=== PATIENT | female | born 1985 | race Caucasian/White ===

== ENCOUNTER 2017-09-22 14:14 | Emergency (ER) | payer SELFPAY ==
[2017-09-22 14:15] VITALS: BP 133/76; PULSE 80; RESP 20; TEMP 37; O2SAT 99; BMI 26.6
--- NOTE | 2017-09-22 14:42 | CT_ITS ---
CT head/brain wo con Ordering Physician: Jorge Luis Powell MD Patient Age: 32 years: Female HISTORY: loss of right eye peripheral vision Right eye redness inflamed since Sand[place]. Family history of brain tumor. Headache. TECHNIQUE: Routine CT head without contrast. Brain and bone windows performed on workstation and submitted to PACS....76 CPT COMPARISON :None FINDINGS No acute intracranial findings evident on this survey CT without contrast. No mass lesion. No hemorrhage. No extra-axial collection or mass. The ventricles and basal cisterns appear satisfactory. Posterior fossa is unremarkable.. Incidental observations: Nearly 2 cm retention cyst at posterior floor of left maxillary sinus. Prominent deviation nasal septum convexity to the right incidentally noted along with moderate engorgement nasal turbinates . Trace mucosal thickening anterior inferior right sphenoid sinus. Otherwise frontal ethmoid and sphenoid sinuses clear. Opacification of several mastoid air cells at left mastoid tip reflecting developing minimal left mastoid effusion. Otherwise majority of the left mastoid air cells superior to this on left unremarkable.. Right mastoid air cells well-developed & clear. Middle ear clear unremarkable. IACs satisfactory. Skull intact. Limited axial images the orbits reveal no prominent findings here. No retrobulbar pathology. Lacrimal gland upper normal prominence. The the suprasellar cistern region of optic chiasm unremarkable. The occipital lobes unremarkable. .....IMPRESSION....... 1. No acute incidental findings. Brain within normal limits.. Skull intact 2. No significant findings at the orbits on this CT head survey study.. Lacrimal glands upper normal bilateral 3. Minimal findings paranasal sinuses as in text . . Also incidental note of minimal mastoid effusion at left mastoid tip.
[2017-09-22 14:59] LABS: Urine Pregnancy, HCG Qual. Negative (Negative)
--- NOTE | 2017-09-22 15:44 | [facility].EDEYEP ---
ED Disposition Clinical Impression: Acute iritis, right eye Disposition: Home, Self-Care Condition on Discharge: Good Instructions: DI for Anterior Uveitis Additional Instructions: Please go to [facility] upon discharge from this department, to be evaluated by Dr. Alejandro Talbot. Time of Disposition: 15:47 - Critical Care Critical Care Time: No Attestation: On 09/22/17, the high probability of a clinically significant, sudden or life threatening deterioration of the following system(s) required my full and direct attention, intervention and personal management. The time I documented below is in addition to time spent performing reported procedures but includes the following listed in this critical care notation. Medical Decision Making - Medical Records Medical records reviewed: Yes: I reviewed the patient's medical records. Vital Signs: 09/22/17 14:15 09/22/17 16:11 Temperature 98.6 F 98.5 F Temperature Source Oral Oral Pulse Rate 68 Pulse Rate [Right Radial] 80 Respiratory Rate 20 18 Blood Pressure 129/87 Blood Pressure [Right Arm] 133/76 Blood Pressure Mean [Right Arm] 95 Blood Pressure Source Automatic Cuff Blood Pressure Source [Right Arm] Automatic Cuff Blood Pressure Position Sitting Blood Pressure Position [Right Arm] Sitting 02 Sat by Pulse Oximetry 99 Oxygen Delivery Method Room Air Room Air - Lab Data Lab results reviewed: Yes: I reviewed the patient's lab results. Lab Results 09/22/17 14:55: Urine HCG, Qual Negative - CT Data CT Scan: Head Time Received: 15:[address] Reviewed: Yes: I discussed the CT results w/the radiologist Preliminary Findings: Normal/NAD - Physician Consults Physician Consulted: Dr Alejandro Talbot Time: 15:15 Reason -: Pt condition, Opthalmology Eval/Care, Other (need to be seen upon d/c from ER, today) Comment/Response: Adviced of my concern of possible right eye iritis/uveitis. - Ted Inquiry Pt receiving controlled substance: No Eye Problem HPI - General Chief complaint: Eye Problems Stated complaint: no vision in r eye, red Time Seen by Provider: 09/22/17 14:14 Mode of Arrival: Ambulatory Source of Information: Patient Limitations: No Limitations Description of Symptoms (Recalled from ER Triage Doc. by RN): REDNESS TO R EYE, DRAINAGE IS CLEAR X 3 DAYS - History of Present Illness chief complaint: eye pain (right) Onset (ago): day(s) (3) Onset description: gradual Duration: constant Location: right eye Eye Symptoms: burning, redness, decreased vision Place: home Mechanism: none Severity: moderate Severity scale (1-10): 4 If Pain, Quality: burning Associated symptoms: none - Related Data Patient tetanus UTD: No Allergies Allergy/AdvReac Type Severity Reaction Status Date / Time From Penicillin G Sodium Allergy Unknown Uncoded 08/26/17 15:23 HYDROCODONE Allergy Unknown Uncoded 08/26/17 15:23 SULFA (SULFONAMIDE) Allergy Unknown Uncoded 08/26/17 15:23 [facility] History I have reviewed the patient's past medical history: Yes ROS Obtained: Yes All systems reviewed & no additional complaints - Eyes Eyes: Reports as per HPI, Reports change in vision (right eye), Reports eye discharge (right eye), Reports loss of peripheral vision (right eye) Physical Exam - General General appearance: alert, in distress (mild) - Head Head exam: atraumatic, normocephalic - Eye Eye exam: Present: PERRL, EOMI, other (right conjunctiva hyperemia, pronounced limbus at junction with cornea, yellow d/c) - ENT ENT exam: Present: normal exam - Neck Neck exam: Present: normal inspection, full ROM, trachea midline - Chest Chest inspection: Present: normal inspection, symmetric chest wall rise - Respiratory Respiratory exam: Present: normal lung sounds bilaterally - Cardiovascular Cardiovascular exam: Present: regular rate, normal rhythm, normal heart sounds - Abdominal Exam Abdominal exam: Present: soft, normal bowel sounds. Abs
--- NOTE | 2017-09-22 15:47 | ED_ITS ---
ED Disposition Clinical Impression: Acute iritis, right eye Disposition: Home, Self-Care Condition on Discharge: Good Instructions: DI for Anterior Uveitis Additional Instructions: Please go to [facility] upon discharge from this department, to be evaluated by Dr. Alejandro Talbot. Time of Disposition: 15:47 - Critical Care Critical Care Time: No Attestation: On 09/22/17, the high probability of a clinically significant, sudden or life threatening deterioration of the following system(s) required my full and direct attention, intervention and personal management. The time I documented below is in addition to time spent performing reported procedures but includes the following listed in this critical care notation. Medical Decision Making - Medical Records Medical records reviewed: Yes: I reviewed the patient's medical records. Vital Signs: 09/22/17 14:15 09/22/17 16:11 Temperature 98.6 F 98.5 F Temperature Source Oral Oral Pulse Rate 68 Pulse Rate [Right Radial] 80 Respiratory Rate 20 18 Blood Pressure 129/87 Blood Pressure [Right Arm] 133/76 Blood Pressure Mean [Right Arm] 95 Blood Pressure Source Automatic Cuff Blood Pressure Source [Right Arm] Automatic Cuff Blood Pressure Position Sitting Blood Pressure Position [Right Arm] Sitting 02 Sat by Pulse Oximetry 99 Oxygen Delivery Method Room Air Room Air - Lab Data Lab results reviewed: Yes: I reviewed the patient's lab results. Lab Results 09/22/17 14:55: Urine HCG, Qual Negative - CT Data CT Scan: Head Time Received: 15:[address] Reviewed: Yes: I discussed the CT results w/the radiologist Preliminary Findings: Normal/NAD - Physician Consults Physician Consulted: Dr Alejandro Talbot Time: 15:15 Reason -: Pt condition, Opthalmology Eval/Care, Other (need to be seen upon d/c from ER, today) Comment/Response: Adviced of my concern of possible right eye iritis/uveitis. - Ted Inquiry Pt receiving controlled substance: No Eye Problem HPI - General Chief complaint: Eye Problems Stated complaint: no vision in r eye, red Time Seen by Provider: 09/22/17 14:14 Mode of Arrival: Ambulatory Source of Information: Patient Limitations: No Limitations Description of Symptoms (Recalled from ER Triage Doc. by RN): REDNESS TO R EYE, DRAINAGE IS CLEAR X 3 DAYS - History of Present Illness chief complaint: eye pain (right) Onset (ago): day(s) (3) Onset description: gradual Duration: constant Location: right eye Eye Symptoms: burning, redness, decreased vision Place: home Mechanism: none Severity: moderate Severity scale (1-10): 4 If Pain, Quality: burning Associated symptoms: none - Related Data Patient tetanus UTD: No Allergies Allergy/AdvReac Type Severity Reaction Status Date / Time From Penicillin G Sodium Allergy Unknown Uncoded 08/26/17 15:23 HYDROCODONE Allergy Unknown Uncoded 08/26/17 15:23 SULFA (SULFONAMIDE) Allergy Unknown Uncoded 08/26/17 15:23 [facility] History I have reviewed the patient's past medical history: Yes ROS Obtained: Yes All systems reviewed & no additional complaints - Eyes Eyes: Reports as per HPI, Reports change in vision (right eye), Reports eye discharge (right eye), Reports loss of peripheral vision (right eye) Physical Exam - General General appearance: alert, i
[2017-09-22 16:11] VITALS: BP 129/87; PULSE 68; RESP 18; TEMP 36.9; O2SAT 98
== END 2017-09-22 16:11 | disposition home or self-care (01) ==
PROVIDERS: Emergency Provider Emergency Medicine
DX: H20.00 Unspecified acute and subacute iridocyclitis (principal)
CPT/HCPCS: 70450; 81025; 99282; 99291

== ENCOUNTER → 2017-12-16 10:34 | Outpatient (CLI) | payer BC, SELFPAY ==
[2017-12-16 11:17] LABS: Basophils # 0.1 K/mm3 (0-0.2); Basophils % 0.5 % (0.1-2.0); Eosinophils # 0.2 K/mm3 (0.0-0.4); Eosinophils % 2.5 % (0.1-12.0); Hemoglobin 13.5 g/dL (12.2-16.2); Lymphocytes # 2.3 K/mm3 (0.7-4.5); Lymphocytes % 24.4 K/mm3 (10-50); Mean Corpuscular Hemoglobin 31.2 pg (27.0-31.2); Mean Corpuscular Volume 94.7 fl (81-99); Mean Platelet Volume 7.5 fl (7.4-10.4); Monocytes # 0.3 K/mm3 (0.1-1.0); Monocytes % 2.8 % (1.7-9.3); Neutrophils # 6.6 K/mm3 (1.8-7.8); Neutrophils % 69.9 % (37.0-80.0); Platelet Count 363 K/mm3 (142-424); Red Blood Count 4.33 M/mm3 (4.20-5.40); White Blood Count 9.4 K/mm3 (4.8-10.8)
[2017-12-16 12:35] LABS: Amphetamine/Metha Screen,Urine Negative ng/mL (<1000); Barbiturates Screen,Urine Negative ng/mL (<200); Benzodiazepines Screen,Urine Negative ng/mL (200); Cannabinoid Screen,Urine Positive ng/mL (<50); Cocaine Screen,Urine Negative ng/g (<300); Methadone Screen,Urine Negative ng/mL (<300); Opiate Screen,Urine Negative ng/mL (<300); Phencyclidine Screen,Urine Negative ng/mL (<25)
[2017-12-16 13:19] LABS: Thyroid Stimulating Hormone 0.48 uIU/ml (0.358-3.740)
[2017-12-18 15:52] LABS: HIV Screen 4th Generation wRfx Non Reactive (Non Reactive)
[2017-12-18 15:55] LABS: Hepatitis B Surface Antigen Negative (Negative); Rubella Antibodies, IgG 3.49 index (Immune >0.99)
== END ==
PROVIDERS: PCP Family Medicine; Visit Provider Obstetrics & Gynecology
DX: Z34.90 Encounter for supervision of normal pregnancy, unspecified, unspecified trimester (principal)
CPT/HCPCS: 36415; 80305; 82106; 84443; 85025; 86703; 86762; 86850; 87340; G0432

== ENCOUNTER → 2018-01-15 10:05 | Outpatient (CLI) | payer BC, SELFPAY ==
[2018-01-15 19:14] LABS: Amphetamine/Metha Screen,Urine Negative ng/mL (<1000); Barbiturates Screen,Urine Negative ng/mL (<200); Benzodiazepines Screen,Urine Negative ng/mL (200); Cannabinoid Screen,Urine Positive ng/mL (<50); Cocaine Screen,Urine Negative ng/g (<300); Methadone Screen,Urine Negative ng/mL (<300); Opiate Screen,Urine Negative ng/mL (<300); Phencyclidine Screen,Urine Negative ng/mL (<25)
[2018-01-20 00:15] LABS: AFP Value 47.4 ng/mL (.); DIA MoM 2.72 (.); DSR (Second Trimester) 1 IN 252 (.); Gest. Age on Collection Date 19.4 WEEKS (.); Maternal Age At EDD 31.3 yr (.); OSBR Risk 1 IN 10000 (.); Results Report (.); hCG MoM 1.16 (.); hCG Value 25330 mIU/mL (.); uE3 MoM 1.33 (.); uE3 Value 2.08 ng/mL (.)
[2018-01-20 15:16] LABS: Gestat. Age Based On EDD (.)
== END ==
PROVIDERS: PCP Family Medicine; Visit Provider Obstetrics & Gynecology
DX: Z34.90 Encounter for supervision of normal pregnancy, unspecified, unspecified trimester (principal)
CPT/HCPCS: 36415; 80305; 82106